=== PATIENT | female | born 1945 | race Caucasian/White ===

== ENCOUNTER 2016-04-13 22:22 | Emergency (ER) | payer OTHER, MEDICARE ==
[~2016-04-13] VITALS: Ht 167.6 cm; Wt 61.2 kg
[~2016-04-13 22:22] MED LIST: ENDOCET 325 MG-1 TA1 PO
[2016-04-13 22:27] VITALS: BP 179/79
[2016-04-13] MEDS ORDERED: [UNRECOGNIZED DRUG - OTHER] PO (22:57)
[2016-04-13] MEDS ORDERED: CLONAZEPAM0.5 M2 PO (22:59)
[2016-04-13] MEDS ORDERED: OMEGA-3 ACID ETH1 GM PO (23:00)
[2016-04-13] MEDS ORDERED: ZOMIG NAS (23:01)
[2016-04-13] MEDS ORDERED: ZOMIG5 M2 PO (23:02)
[2016-04-13] MEDS ORDERED: BUPROPION XL300 M1 PO (23:04)
[2016-04-13] MEDS ORDERED: VERAPAMIL ER180 MG (23:04)
--- NOTE | 2016-04-13 23:05 | ED SKIN/ALLERGY COMPLAINT ---
History of Present Illness General Chief Complaint: General Adult Stated Complaint: PT IS HAVING A REACTION TO SOMETHING SHE TOOK Source: patient Exam Limitations: no limitations Vital Signs & Intake/Output Vital Signs & Intake/Output Vital Signs Date Time Temp Pulse Resp B/P Pulse O2 O2 Flow FiO2 Ox Delivery Rate 04/13 2227 97.4 71 20 179/79 99 Room Air Allergies Coded Allergies: codeine (Mild, ITCHY RASH FEELS LIKE PINGING IN BRAIN 04/13/16) Beta-Blockers (Beta-Adrenergic Bloc (PER PT BODY DOES NOT RESPOND WELL, HAS TRIED MULTIPLE TYPES 04/13/16) Reconcile Medications Bupropion HCl (Bupropion XL) 300 MG TAB.ER.24H 1 TAB PO QAM DEPRESSION/ MIGRAINES (Reported) Calcium Carbonate (Calcium) (Unknown Strength) TABLET (Unknown Dose) PO DAILY SUPPLEMENT (Reported) Cholecalciferol (Vitamin D3) (Vitamin D) (Unknown Strength) TABLET (Unknown Dose) PO DAILY SUPPLEMENT (Reported) Clonazepam 0.5 MG TABLET 1 TAB PO QPM SLEEP (Reported) Diphenhydramine HCl (Benadryl) 25 MG CAPSULE 2 CAP PO ONCE ALLERGIC REACTION (Reported) Eszopiclone (Unknown Strength) TABLET (Unknown Dose) UNKNOWN (Reported) Levothyroxine Sodium (Synthroid) 125 MCG TABLET 0.5 TAB PO DAILY THYROID ( Reported) [MIGRA CLEAR] 2 CAP PO ONCE MIGRAINE SUPPLEMENT (Reported) Montelukast Sodium (Unknown Strength) TABLET (Unknown Dose) UNKNOWN (Reported ) Multivitamin (Multi-Day Vitamins) 1 EACH TABLET 1 TAB PO DAILY SUPPLEMENT ( Reported) Nebivolol HCl/Valsartan (Byvalson 5 MG-80 MG Tablet) (Unknown Strength) TABLET (Unknown Dose) UNKNOWN (Reported) [place]-3 Acid Ethyl Esters 1 GRAM CAPSULE 1 CAP PO BID DRY EYES (Reported) Onabotulinumtoxina (Botox) (Unknown Strength) VIAL (Unknown Dose) AD MIGRAINES (Reported) Timolol Maleate 0.5 % DROPS 1 GTT OPH QPM BOTH EYES (Reported) Verapamil HCl (Verapamil ER) (Unknown Strength) CAP24H.PEL (Unknown Dose) UNKNOWN (Reported) Zolmitriptan (Zomig) 2.5 MG SPRAY 1 SPRAY ROSINA AD PRN MIGRAINES (Reported) Zolmitriptan (Zomig) 5 MG TABLET 1 TAB PO AD PRN HEADACHES (Reported) Triage Note: TRIAGE: PT TO ER C/C RASH ALL OVER. ONSET 30-45 MIN CMA RIGHT AFTER TAKING NEW OTC MEDICATION FOR MIGRAINES. TOOK MIGRA CLEAR X 2 TABS 21:45. TOOK BENADRYL X 2 TABS APPROX 30 MIN CMA. SLIGHT IMPROVEMENT SINCE TAKING BENADRYL. DENIES DIFFICULTY BREATHING OR SWALLOWING. Triage Nurses Notes Reviewed? yes Onset: Abrupt Duration: minute(s):, constant, continues in ED Timing: recent history No Modifying Factors: none HPI: 71-year-old female comes into emergency room evaluation allergic reaction to medication. Patient reports that she or her this medication for headaches. 20 minutes after taking the medication she got a generalized rash that started on her hands and moved up her arms and also located on other parts of the body. Denies any tongue swelling or difficulty breathing. Patient took 2 Benadryl and her symptoms of the rash significantly improved. Denies any other associated symptoms. (LANDEN ALEXANDRA) Past History Travel History Traveled to [place] past 21 day No Medical History Any Pertinent Medical History? see below for history Neurological: migraine EENT: NONE Cardiovascular: NONE Respiratory: NONE Gastrointestinal: NONE Hepatic: NONE Renal: NONE Musculoskeletal: SHOULDER FX Psychiatric: NONE Endocrine: hypothyroidism Blood Disorders: NONE Cancer(s): NONE DIAMOND SELECTOR/Reproductive: NONE Tetanus Vaccine: 08/22/13 Surgical History Surgical History: non-contributory Psychosocial History What is your primary language Georgian Tobacco Use: Quit >30 days ago ETOH Use: denies use Illicit Drug Use: denies illicit drug use Family History Hx Contributory? No (LANDEN ALEXANDRA) Review of Systems Review of Systems Constitutional: Reports: no symptoms. EENTM: Reports: no symptoms. Respiratory: Reports: no symptoms. Cardiovascular: Reports: no symptoms. GI: Reports: no symptoms. Genitourinary: Reports: no symptoms. Musculoskeletal: Reports: no symptoms. Skin: Reports: see HPI. Neurological/Psychological: Reports: no symptoms. Hematologic/Endocrine: Reports: no symptoms. Immunologic/Allergic: Reports: see HPI. All Other Systems: Reviewed and Negative (LANDEN ALEXANDRA) Physical Exam Physical Exam General Appearance: well developed/nourished Head: atraumatic Eyes: Bilateral: normal appearance. Ears, Nose, Throat: normal pharynx, normal ENT inspection, hearing grossly normal, no angioedema Neck: normal inspection Respiratory: no respiratory distress Back: normal inspection Extremities: normal inspection, normal range of motion, no edema Neurologic/Psych: awake, alert, oriented x 3, normal mood/affect Skin: intact, red patch the left elbow, no other rash appreciated at this time, Skin Problem Location: upper extremities Lymphatic: no anterior cervical graham (LANDEN ALEXANDRA) Progress Differential Diagnosis: abscess/cellulitis, allergic reaction, anaphylaxis, contact dermatitis, drug reaction Plan of Care: Current Medications Sig/Jose Start time Last Medication Dose Stop Time Status Admin Prednisone 60 MG ONCE ONE 04/13 2314 UNVr 04/14 2315 Comments: PT CLINICALLY LOOKS WELL. No evidence of anaphylaxis. Pt medicated. rash has improved. Pt ready to be discharged. Devlined prednsione to go home with. Pt was encouraged to take benadryl for next 24 hours and told to return if any shortness of breath or tongue swelling. (LANDEN ALEXANDRA) Departure Departure Disposition: HOME OR SELF CARE Condition: Stable Clinical Impression Primary Impression: Allergic reaction Referrals: ANDREAS HOLLINGSWORTH,JAUN Zurita (PCP/Family) Additional Instructions: Take Benadryl at home. Take prednisone as prescribed. Return if any tongue swelling shortness of breath or any other concerns worsening symptoms. Do not take that medication again. Please go over all results of today's visit with your primary care doctor. Contact your primary care doctor to let them know you were here in the emergency room. There may be nonspecific findings which may not be related to your visit today here in the emergency room but may require further evaluation and chronic monitoring by your primary care doctor. If you had a laceration today the chance of foreign body always remains. You should follow-up with your primary care doctor for recheck in 3-5 days for a wound check. If you had an x-ray done there is a chance that a fracture could have been missed on initial read and you should follow-up with your primary care doctor for repeat x-rays if symptoms persist. If your blood pressure was elevated here in the emergency room please have rechecked by her primary care doctor within the next 48 hours by your primary care doctor. If you were prescribed a narcotic here in the emergency room or any type of controlled substances you're not allowed to drive while taking this medication or operate any type of heavy machinery. Narcotics can make you feel lightheaded dizziness nausea and can cause constipation. You may need to hand picker a stool softener. Thank you for choosing [facility] emergency room. Please return to the emergency room immediately if you have any other concerns worsening of symptoms. Departure Forms: Customer Survey General Discharge Information (LANDEN ALEXANDRA) PA/RN CHARGE Co-Sign Statement Statement: ED Attending supervision documentation- [] I saw and evaluated the patient. I have also reviewed all the pertinent lab results and diagnostic results. I agree with the findings and the plan of care as documented in the PA's/RN CHARGE's documentation. [x] I have reviewed the ED Record and agree with the PA's/RN CHARGE's documentation. [] Additions or exceptions (if any) to the PAs/RN CHARGE's note and plan are summarized below: [] (LEXY HOLLINGSWORTH,TRACY Rand)
[2016-04-13] MEDS ORDERED: SYNTHROID125 MCG PO (23:08)
[2016-04-13] MEDS ORDERED: TIMOLOL MALEATE5 M4 OPH (23:08)
[2016-04-13] MEDS ORDERED: ESZOPICLONE3 M1 (23:09)
[2016-04-13] MEDS ORDERED: MONTELUKAST SOD10 M1 (23:09)
[2016-04-13] MEDS ORDERED: BYVALSON 5 MG-1 EACH (23:10)
[2016-04-13] MEDS ORDERED: CALCIUM600 M2 PO (23:11)
[2016-04-13] MEDS ORDERED: VITAMIN D2000 UNI1 PO (23:11)
[2016-04-13] MEDS ORDERED: MULTI-DAY VITA1 EACH PO (23:12)
[2016-04-13] MEDS ORDERED: BOTOX200 UNIT (23:12)
[2016-04-13] MEDS ORDERED: BENADRYL25 MG PO (23:18)
== END 2016-04-13 23:33 ==
LOC: ERH 22:22
DX: R21 Rash and other nonspecific skin eruption (principal); T50.905A Adverse effect of unspecified drugs, medicaments and biological substances, initial encounter